=== PATIENT | male | born 1965 | race Caucasian/White ===

== ENCOUNTER 2016-12-30 17:39 | Emergency (ER) | payer SELFPAY ==
--- NOTE | 2016-12-30 17:45 | EDPHY ---
H & P Time Seen by Provider: 12/30/16 17:39 HPI/ROS: CHIEF COMPLAINT: Alcohol usage, elevated serum glucose HISTORY OF PRESENT ILLNESS: 51-year-old male arrives by ambulance from the [facility] detoxification tent after was found to have a serum glucose of 333. No history of diabetes, no medications. Admits to alcohol use. No trauma or fall. No complaints of pain or discomfort. No polyuria. No headache. No suicidal or homicidal ideation REVIEW OF SYSTEMS: A ten point review of systems was performed and is negative with the exception of the items mentioned in the HPI PAST MEDICAL & SURGICAL HISTORY: No known history of diabetes SOCIAL HISTORY: admits to positive alcohol use PHYSICAL EXAM (Prior to examination, patient consented to physical exam, hands were washed and my usual and customary physical exam procedures followed) 1) GENERAL: Well-developed, well-nourished, alert and oriented. Smells of alcohol . 2) HEAD: Normocephalic, atraumatic 3) HEENT: Pupils equal, round, reactive to light bilaterally. Sclera anicteric. Nasopharynx, oropharynx, clear, no lesions. 4) NECK: Full range of motion, no meningeal signs. 5) LUNGS: Clear auscultation bilaterally, no wheezes, no rhonchi, no retractions. 6) HEART: Regular rate and rhythm, no murmur, no heave, no gallop. 7) ABDOMEN: No guarding, no rebound, no focal tenderness, negative McBurney's, negative Pendleton's, negative Rovsing's, negative peritoneal sign, 8) MUSCULOSKELETAL: Moving all extremities, no focal areas of tenderness, no obvious trauma. No peripheral edema or discoloration. 9) BACK: No CVA tenderness, no midline vertebral tenderness, no fluctuance, no step-off, no obvious trauma, no visual or palpable abnormality. 10) SKIN: No rash, no petechiae. 11) Psychiatric: Patient is oriented X 3, there is no agitation. DIFFERENTIAL DIAGNOSIS: In no particular order including but not limited to hypoglycemia, infectious process, electrolyte abnormality, head injury and intoxicants. Constitutional: Initial Vital Signs Temperature (C) 36.6 C 12/30/16 17:48 Heart Rate 112 H 11/11/17 17:48 Respiratory Rate 18 12/30/16 17:48 Blood Pressure 149/108 H 12/30/16 17:48 O2 Sat (%) 88 L 12/30/16 17:48 O2 Delivery Mode Room Air O2 (L/minute) 2 Allergies/Adverse Reactions: No Known Allergies Allergy (Unverified 12/30/16 17:47) Home Medications: Medication Instructions Recorded NK [No Known Home Meds] 12/30/16 Medical Decision Making ED Course/Re-evaluation: 6:04 p.m. patient noted to have an I-STAT glucose of 357. Will obtain further laboratory studies, IV fluids. He notes no prior history of elevated serum glucose. He is sleeping at this time. Care of patient under supervision of secondary supervising physician Dr Langston . 6:25 p.m.: Patient is sleeping 6:35 p.m.: Patient is sleeping 6:44 p.m.: Informed by the nurse that sometime in the past 9 minutes between when I had last seen the patient he had pulled his IV and walked out of the emergency department without informing any staff and without any emergency department staff or me witnessing this. 6:50 p.m.: Called the patient at his listed phone number of [phone] and this phone number has been disconnected. - Data Points Laboratory Results: Laboratory Results 12/30/16 17:51 12/30/16 17:51 12/30/16 12/30/16 12/30/16 17:51 17:51 17:51 WBC 6.79 10^3/uL 10^3/uL (3.80-9.50) RBC 5.43 10^6/uL 10^6/uL (4.40-6.38) Hgb 18.8 g/dL H g/dL (13.7-17.5) POC Hgb 19.0 gm/dL H gm/dL (13.7-17.5) Hct 50.4 % % (40.0-51.0) POC Hct 56 % H % (40-51) MCV 92.8 fL fL (81.5-99.8) MCH 34.6 pg H pg (27.9-34.1) MCHC 37.3 g/dL H g/dL (32.4-36.7) RDW 12.3 % % (11.5-15.2) Plt Count 152 10^3/uL 10^3/uL (150-400) MPV 10.8 fL fL (8.7-11.7) Neut % (Auto) 70.7 % % (39.3-74.2) Lymph % (Auto) 20.5 % % (15.0-45.0) [place] % (Auto) 4.9 % % (4.5-13.0) Eos % (Auto) 2.4 % % (0.6-7.6) Baso % (Auto) 0.9 % % (0.3-1.7) Nucleat RBC Rel Count 0.0 % % (0.0-0.2) Absolute Neuts (auto) 4.81 10^3/uL 10^3/uL (1.70-6.50) Absolute Lymphs (auto) 1.39 10^3/uL 10^3/uL (1.00-3.00) Absolute Monos (auto) 0.33 10^3/uL 10^3/uL (0.30-0.80) Absolute Eos (auto) 0.16 10^3/uL 10^3/uL (0.03-0.40) Absolute Basos (auto) 0.06 10^3/uL 10^3/uL (0.02-0.10) Absolute Nucleated RBC 0.00 10^3/uL 10^3/uL (0-0.01) Immature Gran % 0.6 % % (0.0-1.1) Immature Gran # 0.04 10^3/uL 10^3/uL (0.00-0.10) POC Sodium 140 mEq/L mEq/L (134-144) Sodium 143 mEq/L mEq/L (134-144) POC Potassium 4.4 mEq/L mEq/L (3.3-5.0) Potassium 4.9 mEq/L mEq/L (3.5-5.2) POC Chloride 103 mEq/L mEq/L (97-110) Chloride 100 mEq/L mEq/L (97-110) Carbon Dioxide 20 mEq/l L mEq/l (22-31) Anion Gap 23 mEq/L H mEq/L (8-16) POC BUN 14 mg/dL mg/dL (7-23) BUN 13 mg/dL mg/dL (7-23) Creatinine 0.9 mg/dL mg/dL (0.7-1.3) POC Creatinine 1.4 mg/dL H mg/dL (0.7-1.3) Estimated GFR > 60 Glucose 354 mg/dL H mg/dL (70-100) POC Glucose 356 mg/dL H mg/dL (70-100) Calcium 10.0 mg/dL mg/dL (8.5-10.4) Beta-Hydroxybutyrate Pending Ethyl Alcohol 312 mg/dL H mg/dL (0-10) Medications Given: Discontinued Medications Sodium Chloride (Ns) 1,000 mls @ 0 mls/hr IV EDNOW ONE; Wide Open PRN Reason: Protocol Stop: 12/30/16 17:57 Last Admin: 12/30/16 17:57 Dose: 1,000 mls Sodium Chloride (Ns) 1,000 mls @ 0 mls/hr IV ONCE ONE; Wide Open PRN Reason: Protocol Stop: 12/30/16 18:03 Last Admin: 12/30/16 18:07 Dose: 1,000 mls Point of Care Test Results: 12/30/16 17:51 POC Sodium 140 POC Potassium 4.4 POC Chloride 103 POC BUN 14 POC Creatinine 1.4 H POC Glucose 356 H Departure - Departure Disposition: Against Medical Advice Clinical Impression: Elevated serum glucose Alcohol intoxication Qualifiers: Complication of substance-induced condition: uncomplicated Qualified Code(s): F10.920 - Alcohol use, unspecified with intoxication, uncomplicated Referrals: Patient,NotPresent [Unknown] - As per Instructions
[2016-12-30 17:50] VITALS: BP 149/108; PULSE 112; RESP 18; TEMP 97.9
[2016-12-30 17:56] VITALS: O2SAT 95
[2016-12-30] MEDS ORDERED: NS 1,000 ML IV ONE ×2 (17:56→18:02)
[2016-12-30 18:07] LABS: % IMMATURE GRANULYOCYTES 0.6 % (0.0-1.1); ABSOLUTE IMMATURE GRANULOCYTES 0.04 10^3/uL (0.00-0.10); ADD DIFF? NO; ADD MORPH? NO; ADD SCAN? NO; ATYPICAL LYMPHOCYTE FLAG 0 (0-99); FRAGMENT RBC FLAG 0 (0-99); HEMATOCRIT 50.4 % (40.0-51.0); HEMOGLOBIN 18.8 g/dL (13.7-17.5); LEFT SHIFT FLG 0 (0-99); LIPEMIA HEMOLYSIS FLAG 90 (0-99); MEAN CELL HEMOGLOBIN 34.6 pg (27.9-34.1); MEAN CELL HEMOGLOBIN CONCENTR. 37.3 g/dL (32.4-36.7); MEAN CELL VOLUME 92.8 fL (81.5-99.8); MEAN PLATELET VOLUME 10.8 fL (8.7-11.7); PLATELET CLUMPS FLAG 10 (0-99); PLATELET COUNT 152 10^3/uL (150-400); RED BLOOD CELL COUNT 5.43 10^6/uL (4.40-6.38); RED CELL DISTRIBUTION WIDTH 12.3 % (11.5-15.2)
[2016-12-30 18:31] LABS: ANION GAP 23 mEq/L (8-16); CARBON DIOXIDE 20 mEq/l (22-31); CHLORIDE 100 mEq/L (97-110); CREATININE 0.9 mg/dL (0.7-1.3); GLOMERULAR FILTRATION RATE > 60; GLUCOSE 354 mg/dL (70-100); POTASSIUM 4.9 mEq/L (3.5-5.2); SODIUM 143 mEq/L (134-144)
[2016-12-30 18:39] LABS: ETHANOL SERUM 312 mg/dL (0-10)
[2016-12-30 18:58] LABS: B-HYDROXYBUTYRATE 0.59 mmol/L (0.02-0.27)
== END 2016-12-30 18:44 | disposition left against medical advice (07) ==
LOC: EDUNIT#
DX: R73.09 Other abnormal glucose (principal); F10.920 Alcohol use, unspecified with intoxication, uncomplicated
CPT/HCPCS: 82947-QW; G0480